=== PATIENT | female | born 1945 | race Caucasian/White ===

== ENCOUNTER 2024-02-04 07:20 | Outpatient (RCR) | payer MEDICARE, SELFPAY ==
[2024-02-03 16:09] LABS: Basophils % (Auto) 0 % (0-2.5); Eosinophils # (Auto) 0.1 Thou/mm3 (0.0-0.5); Eosinophils % (Auto) 2 % (0-10); Hematocrit 25.3 % (36.0-46.0); Immature Granulocytes % (Auto) 0 % (0-0); Immature Granulocytes Auto 0.01 Thou/mm3 (0.00-0.00); Immature Reticulocyte Fraction 18.4 % (3.0-15.9); Lymphocytes # (Auto) 0.5 Thou/mm3 (1.0-4.8); Lymphocytes % (Auto) 10 % (10-50); Mean Corpuscular HGB Conc 31.6 g/dl (31.0-37.0); Mean Corpuscular Hemoglobin 31.7 pg (25.0-35.0); Mean Corpuscular Volume 100 fL (80-100); Monocytes # (Auto) 0.5 Thou/mm3 (0.0-0.8); Monocytes % (Auto) 10 % (0-12); Neutrophils # (Auto) 3.9 Thou/mm3 (1.8-7.7); Neutrophils % (Auto) 78 % (37-80); Nucleated Red Blood Cell % 0 /100 WBC (0); Platelet Count 142 Thou/mm3 (140-440); RDW Standard Deviation 63.5 fL (36.4-46.3); Red Blood Count 2.52 Miln/mm3 (4.00-5.20); Reticulocyte % (Auto) 4.5 % (0.5-1.5); Reticulocyte Absolute Auto 112.6 Biln/L (25.0-75.0); Reticulocyte Hgb Content 34.6 pg (28.0-35.0)
[2024-02-03 16:25] LABS: Alanine Aminotransferase 17 U/L (10-49); Albumin, Serum 4.6 gm/dL (3.4-4.8); Albumin/Globulin Ratio 2.2 (1.2-2.2); Alkaline Phosphatase 80 U/L (46-116); Anion Gap 6 (7-16); Aspartate Amino Transferase 23 U/L (0-34); BUN/Creatinine Ratio 16 Ratio (12-20); Bilirubin,Total 0.3 mg/dL (0.3-1.2); Blood Urea Nitrogen 16 mg/dL (9-23); Calcium 9.8 mg/dL (8.3-10.6); Calcium (Corrected) 9.8 mg/dL (8.5-10.1); Carbon Dioxide 31.3 mMol/L (20.0-31.0); Chloride 104 mMol/L (98-107); Globulin 2.1 gm/dL (2.3-3.5); Glucose 89 mg/dL (74-106); LDH (Lactate Dehydrogenase) 187 U/L (120-246); Osmolality,Calculated 281 (275-295); Potassium 4.1 mMol/L (3.4-5.1); Sodium 141 mMol/L (136-145); Total Protein 6.7 gm/dL (5.7-8.2); eGFR 57 See Note
[2024-02-03 16:57] LABS: Carcinoembryonic Antigen 1.4 ng/mL (0.0-5.0); Folate > 24.00 ng/mL (>5.38); Vitamin B12 570 pg/mL (211-911)
[2024-02-03 21:10] LABS: Ferritin 34 ng/mL (7.3-270.7); Total Iron Binding Capacity 336 mcg/dL (250-425)
[2024-02-04 09:48] LABS: Iron 31 mcg/dL (50-170); Percent Iron Saturation 9 % (20-55); Unsaturated Iron Binding 305 (225-295)
[2024-02-11 11:17] LABS: Albumin 3.9 g/dL (3.8-4.8); Alpha-1-Globulin 0.3 g/dL (0.2-0.3); Alpha-2-Globulin 0.7 g/dL (0.5-0.9); Beta-1-Globulin 0.4 g/dL (0.4-0.6); Beta-2-globulin 0.2 g/dL (0.2-0.5); Gamma Globulin 0.6 g/dL (0.8-1.7); Kappa Light Chain, Free 23.7 mg/L (3.3-19.4); Lambda Light Chain, Free 29.9 mg/L (5.7-26.3)
--- NOTE | 2024-02-14 04:32 | CTCFLWUP_ITS ---
Patient: FEDERICO PERES : 1945 Page 2 of 2 FOLLOW UP NOTE DATE OF SERVICE: 02/03/2024 NAME: FEDERICO PERES ACCOUNT: [id number] : 1945 AGE: 78 REASON FOR VISIT: Follow-up on iron deficiency ONCOLOGY HISTORY: Patient follows here for anemia and have no current cancer but she has a history of colon cancer 15 y ears ago. Patient have no evidence of recurrence. Patient was found to be iron deficient and was ad vised IV iron but could not use it secondary to inability to come to the clinic to get infusion. Aria mariscal says her transport is now approved and would like to come here to get an infusion if needed. Joel crespo have not have recent labs. Patient at baseline is on oxygen for her COPD. INTERVAL HISTORY: Ms. Federico Peres is a 78-year-old [place] Citizen-speaking female. Lives on her own, patient accompan ied by step daughter who lives down [facility]. Patient has a history of anemia COPD on home oxygen, hype rtension, hyperlipidemia, depression, osteoporosis, colon cancer status post hemicolectomy about 15 y ears ago, mitral valve regurgitation, lung nodules, fractured pelvis in 08/2022 per patient reports. From January 2023 to April 2023 patient has received multiple blood transfusions. Patient was h ospitalized at [facility] from 02/22/2023 to 02/26/2023 for symptomatic anemia. Patient is pending a GI appointment for capsule endoscopy. Patient is pending cardiology referral for mitral regurgita tion. Patient has not followed up with oncologist since 1 year after her colon cancer diagnosis. Is an everyday smoker. 02/22/2023 to 02/26/2023: Hospitalized at [facility] for symptomatic anemia 04/12/2023: Hemoglobin 8.0, MCV 80, iron saturation 12%, ferritin 26, ANC 3.1, WBC 4.3, platelets 136, 000, iron saturation 12%, ferritin 26, vitamin B12 803, folate 11.1 , creatinine 0.99, EGFR 58 DIAGNOSIS: ?? Anemia History of GI bleed History of colon cancer over 15 years ago. REFERRING PHYSCIAN: Antonio Ambriz PRIMARY PHYSCIAN: Antonio Ambriz REASON FOR CONSULTATION: Anemia TREATMENT HISTORY: Care?Plan Start?Date Cycle Day Intent FERAheme?4?doses 06/03/2023 1 28 Palliative OTHER MEDICAL HISTORY/CONDITIONS: Colon Cancer - Stage 3 - 15 yrs ago HTN COPD Peripheral Neuropathy GERD Htperlipidemia Bowel resection with anastomosis; lymph node dissection - 15 yrs ago -[place] Choilecystectomy Right shoulder surgery Right carpal tunnel surgery Laporscopic Oophorectomy - 7 yrs ago Saurabh cataract surgery - 3 1/2 yrs ago ?Clone Other Med Hx? 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 gabapentin - 300 mg 1 Capsule Every day before sleep 2. iron - 325 mg 1 tab Daily 3. lisinopril - 20 mg 1 tab Daily 4. magnesium - 250 mg 1 tab Daily 5. pantoprazole - 40 mg 1 Daily 6. rosuvastatin - 20 mg 1 tab Daily 7. sertraline - 100 mg 1 tab Twice a Day 8. Trazodone - 50 mg 1 tab Daily 9. Vitamin D3 - 5,000 unit 1 tab Daily?[place]ra Meds? Medications Last Reconciled by Taniya Hui MA on 02/03/2024 ALLERGIES: Penicillins REVIEW OF SYSTEMS: A complete 14-point review of systems was performed and is negative except as noted in interval histo ry. PHYSICAL EXAMINATION: VITAL SIGNS: Temperature?98.2, B/P?162/81, Oxygen?Saturation?97% Weight?111?lbs PAIN: 0 - No pain ECOG Performance Status: 3 - Symptomatic; limited self-care; spends >50% of time in bed, not bedridde n GENERAL APPEARANCE: Appears well, in no apparent distress, appropriately interactive. HEENT: Normocephalic, no temporal wasting, normal conjunctiva, no scleral icterus, normal hearing, li ps without lesions, neck normal range of motion. CARDIOVASCULAR: Not assessed. PULMONARY: On oxygen EXTREMITIES: No pedal edema or cyanosis. SKIN: Normal skin appearance. NEUROLOGIC: Alert and ORIENTED x4. PSHYCHIATRIC: Appropriate affect, mood normal, behavior normal, intact thought and speech. LABORATORY DATA: I have personally reviewed and interpreted each of the patient?s relevant lab tests, abnormal finding s are below: Date 02/03/24 ??GLUCOSE,RANDOM?(mg/dL) 89 ??BLOOD?UREA?NITROGEN?(mg/dL) 16 ??CREATININE?(mg/dL) 1.00 ??SODIUM?(mmol/L) 141 ??POTASSIUM?(mmol/L) 4.1 ??CHLORIDE?(mmol/L) 104 ??CrCl?(CandG)?(ml/min) 36.26 ??AST/SGOT?(Unit/L) 23 ??ALT/SGPT?(Unit/L) 17 ??ALKALINE?PHOSPHATASE?(Unit/L) 80 ??BILIRUBIN,?TOTAL?(mg/dL) 0.3 ??PROTEIN?TOTAL?(gm/dl) 6.7 ??ALBUMIN,?SERUM?(gm/dl) 4.6 ??GLOBULIN?(gm/dl) 2.1?L ??ALBUMIN/GLOBULIN?RATIO 2.2 ??CALCIUM,?SERUM?(mg/dL) 9.8 ??CALCIUM?SERUM?(CORRECTED)?(mg/dL) 9.8 IMPRESSION/PLAN: #1 anemia multifactorial Patient have documented iron deficiency in the past Patient is on oral ferrous sulfate taking 1 tablet every other day Patient also received transfusions mostly in the hospital at [facility] I will order blood work for her today CBC and iron studies B12 folic acid reticulocyte count If iron studies are within normal limit do not give iron Patient have low serum iron with goal ferritin, can benefit from IV iron Patient already planned for capsule endoscopy CBC CMP ferritin iron studies B12 folic acid LDH haptoglobin Transfuse 1 unit of PRBC if hemoglobin less than 8 Transfuse 2 units if hemoglobin less than 7 legal services professional consult RETURN TO CLINIC: 4 weeks BILLING AND COMPLIANCE: I reviewed external records from providers outside my specialty as summarized above. I spent a total of 50 minutes on this patient?s care on the day of their visit excluding time spent related to any bi lled procedures. This time includes time spent with the patient as well as time spent documenting in the medical record, reviewing patients records and tests, obtaining history, placing orders, communi cating with other healthcare professionals, counseling the patient, family or caregiver, and/or care coordination for the diagnoses above. Electronically Signed by: Thor Zamudio MD T: 4:30 AM CC: Macho?Pb?Stephan,? PCP: Referring: Macho [place] This document was completed utilizing speech recognition software. Grammatical errors, random word in sertions, pronoun errors, and incomplete sentences are an occasional consequence of this system due t o software limitations, ambient noise, and hardware issues. Any formal questions or concerns about th e content, text or information contained within the body of this dictation should be directly address ed to the provider for clarification.
[2024-02-14 06:52] LABS: Erythropoietin (EPO)* 50.6 mIU/mL (2.6-18.5); Kappa/Lambda, Free Ratio 0.79 (0.26-1.65); Protein, total, serum 6.2 g/dL (6.1-8.1); Testosterone,Total* 2 ng/dL (2-45)
== END 2024-02-29 23:59 | disposition home or self-care (01) ==
LOC: SCTC 07:20
PROVIDERS: PCP Internal Medicine; Referring Provider Internal Medicine; Visit Provider Internal Medicine Hematology & Oncology
DX: D50.9 Iron deficiency anemia, unspecified (principal)
CPT/HCPCS: 36415; 36430; 80053; 82378; 82607; 82668; 82728; 82746; 83521; 83540; 83550; 83615; 84155; 84165; 84403; 85025; 85046; 86334; 86850; 86900; 86901; 86923; 99212; P9016; G0463